=== PATIENT | female | born 1995 | race Native Hawaiian/Other Pacific Islander ===

== ENCOUNTER 2016-04-05 14:26 | Inpatient (IN) | payer MEDICAID, OTHER ==
[~2016-04-05] VITALS: Ht 167.6 cm; Wt 73.9 kg
[2016-04-05 15:03] LABS: BASOPHILS % (AUTO) 0.2 % (0.0-2.0); EOSINOPHILS % (AUTO) 1.6 % (1.0-6.0); HEMATOCRIT 40.5 % (36-46); HEMOGLOBIN 13.3 g/dL (12.0-16.0); LYMPHOCYTES # (AUTO) 2.6 K/uL (1.0-4.8); LYMPHOCYTES % (AUTO) 28.7 % (22.0-44.0); MEAN CORPUSCULAR HEMOGLOBIN 27.8 pg (26.0-34.0); MEAN CORPUSCULAR HGB CONC 32.7 G/dL (31.0-37.0); MEAN CORPUSCULAR VOLUME 85 fL (80-100); MONOCYTES # (AUTO) 0.6 K/uL (0.1-1.0); MONOCYTES % (AUTO) 6.4 % (2.0-9.0); NEUTROPHILS # (AUTO) 5.6 K/uL (1.8-7.7); NEUTROPHILS % (AUTO) 63.1 % (40.0-70.0); PLATELET COUNT (AUTO) 307 K/uL (150-450); RED BLOOD CELL COUNT(AUTO) 4.78 MIL/uL (4.00-5.20); RED CELL DISTRIBUTION WIDTH 13.7 % (11.5-14.5); WHITE BLOOD COUNT (AUTO) 8.9 K/uL (4.5-11.0)
[2016-04-05 15:16] LABS: ANION GAP 9 mmol/L (8-16); CALCIUM, TOTAL 9.3 mg/dL (8.8-10.5); CARBON DIOXIDE 30 mmol/L (22-29); CHLORIDE 100 mmol/L (98-107); CREATININE 0.82 mg/dL (0.60-1.30); GLOMERULAR FILTR. RATE CALC > 60 mL/min (>60); POTASSIUM 4.1 mmol/L (3.5-5.1); SODIUM SERUM 139 mmol/L (136-145); UREA NITROGEN, BLOOD 13 mg/dL (7-18)
[2016-04-05 15:22] LABS: ALANINE AMINOTRANSFERASE 24 U/L (12-78); ASPARTATE AMINOTRANSFERASE 21 U/L (15-37); BILIRUBIN,TOTAL 0.4 mg/dL (0.1-1.0); TOTAL PROTEIN, SERUM 8.7 g/dL (6.4-8.2)
[2016-04-05] MEDS ORDERED: ZOLPIDEM TARTRATE 10 MG TABLET PO PRN (15:45)
[2016-04-05 18:14] VITALS: BP 108/55
[2016-04-05] MEDS ORDERED: INFLUENZA VIRUS VACCINE QVS 2016-17 (3YR+)/PF 60 MCG/0.5 ML SYRINGE IM ONE (19:15)
[2016-04-05] MEDS: LORazepam 2 MG TABLET PO PRN (20:39)
[2016-04-05] MEDS: HALOPERIDOL 5 MG TABLET PO PRN (20:39)
[2016-04-06 06:15] VITALS: BP 105/61
[2016-04-06 08:30] VITALS: BP 115/68
[2016-04-06] MEDS ORDERED: ACETAMINOPHEN 325 MG TABLET PO PRN (09:15)
[2016-04-06] MEDS ORDERED: IBUPROFEN 400 MG TABLET PO PRN (09:15)
[2016-04-06 16:00] VITALS: BP_SYST 106; BP_SYST 108; BP_DIAS 64; BP_DIAS 68
[2016-04-06] MEDS: LORazepam 2 MG TABLET PO PRN (17:12)
[2016-04-07 08:33] LABS: HEMOGLOBIN A1C 5.3 % (4.5-6.2)
[2016-04-07 08:59] LABS: CHOL/HDL RATIO 2.2 (3.9-5.7); THYROID STIMULATING HORMONE 0.36 uIU/mL (0.36-3.74)
[2016-04-07] MEDS: LORazepam 2 MG TABLET PO PRN ×2 (09:00→17:05)
[2016-04-07 09:32] LABS: APPEARANCE,URINE CLOUDY (CLEAR); GLUCOSE, URINE (UA) NEGATIVE (NEGATIVE); KETONES,URINE NEGATIVE (NEGATIVE); LEUKOCYTE ESTERASE ,URINE MODERATE (NEGATIVE); OCCULT BLOOD,URINE NEGATIVE (NEGATIVE); PROTEIN,URINE NEGATIVE (NEGATIVE)
[2016-04-07 10:12] LABS: ADD UA MICROSCOPIC YES
[2016-04-07 10:36] LABS: SQUAMOUS EPITHELIAL CELL,UR Few /LPF (None Seen)
[2016-04-07 16:07] VITALS: BP 101/62
[2016-04-07] MEDS: CIPROFLOXACIN HCL 250 MG TABLET PO SCH (17:00)
[2016-04-07] MEDS: HALOPERIDOL 5 MG TABLET PO PRN (17:05)
[2016-04-08 08:34] VITALS: BP 118/66
[2016-04-08] MEDS: CIPROFLOXACIN HCL 250 MG TABLET PO SCH ×2 (08:49→16:22)
[2016-04-08] MEDS: LORazepam 2 MG TABLET PO PRN (14:23)
[2016-04-08 16:10] VITALS: BP 105/62
[2016-04-08] MEDS: RisperiDONE 0.5 MG TABLET PO SCH (20:20)
[2016-04-09 06:52] VITALS: BP 118/58
[2016-04-09 08:18] VITALS: BP 100/52
[2016-04-09] MEDS: CIPROFLOXACIN HCL 250 MG TABLET PO SCH (08:54)
[2016-04-09] MEDS: RisperiDONE 0.5 MG TABLET PO SCH (08:54)
[2016-04-09] MEDS: LORazepam 2 MG TABLET PO PRN (08:55)
[2016-04-09] MEDS: HALOPERIDOL 5 MG TABLET PO PRN (08:55)
== END 2016-04-09 13:30 | disposition home or self-care (01) | DRG 750 ==
LOC: EMS 14:31 → B3A 16:28
PROVIDERS: ADMIT Psychiatry & Neurology Child & Adolescent Psychiatry; ATTEND Psychiatry & Neurology Child & Adolescent Psychiatry
PROC: 3E0234Z Introduction of Serum, Toxoid and Vaccine into Muscle, Percutaneous Approach (ICD-10-PCS; principal; 2016-04-06)
DX: F25.1 Schizoaffective disorder, depressive type (principal); R45.851 Suicidal ideations; F15.10 Other stimulant abuse, uncomplicated; F10.10 Alcohol abuse, uncomplicated; Z71.41 Alcohol abuse counseling and surveillance of alcoholic; Z23 Encounter for immunization; Z71.51 Drug abuse counseling and surveillance of drug abuser
CPT/HCPCS: 83036; 84443; 87086; 90471; 99285; G0480

== ENCOUNTER 2016-04-27 19:03 | Emergency (ER) | payer MEDICAID | END 2016-04-27 20:02 | disposition left against medical advice (07) | LOC: EMS 19:09 | DX: R51 Headache (principal); Z53.21 Procedure and treatment not carried out due to patient leaving prior to being seen by health care provider ==

== ENCOUNTER 2016-11-14 21:07 | Emergency (ER) | payer MEDICAID, OTHER ==
[~2016-11-14] VITALS: Ht 172.7 cm; Wt 75.0 kg
[2016-11-14] MEDS ORDERED: MORPHINE SULFATE 4 MG/ML SYRINGE IM ONE (21:30)
[2016-11-14] MEDS: ONDANSETRON HCL 4 MG/2 ML VIAL IM ONE ×2 (21:44→21:51)
[2016-11-14 23:51] VITALS: BP 110/65
== END 2016-11-15 00:02 | disposition home or self-care (01) ==
LOC: EMS 21:39
DX: S82.831A Other fracture of upper and lower end of right fibula, initial encounter for closed fracture (principal); M25.561 Pain in right knee; F12.90 Cannabis use, unspecified, uncomplicated; W01.0XXA Fall on same level from slipping, tripping and stumbling without subsequent striking against object, initial encounter; Y93.89 Activity, other specified; Y92.89 Other specified places as the place of occurrence of the external cause; Y99.8 Other external cause status
CPT/HCPCS: 29515; 73562; 73590; 73610; 81025; 96372; 99284; J2270; J2405

== ENCOUNTER 2017-01-21 09:14 | Emergency (ER) | payer OTHER ==
[~2017-01-21] VITALS: Ht 170.2 cm; Wt 79.5 kg
[2017-01-21] MEDS ORDERED: RISP4 PO (09:23)
[2017-01-21] MEDS ORDERED: KETOROLAC TROMETHAMINE 30 MG/ML VIAL IVP ONE (10:00)
[2017-01-21] MEDS ORDERED: ONDANSETRON HCL 4 MG/2 ML VIAL IVP ONE (10:00)
[2017-01-21] MEDS ORDERED: SODIUM CHLORIDE 0.9% 1,000 ML IV ONE ×2 (10:00→11:00)
[2017-01-21] MEDS ORDERED: ACETAMINOPHEN 1000 MG/ISO-OSM 100 ML IV ONE (10:00)
[2017-01-21 10:43] LABS: HEMATOCRIT 40.6 % (36-46); HEMOGLOBIN 13.6 g/dL (12.0-16.0); MEAN CORPUSCULAR HGB CONC 33.3 G/dL (31.0-37.0); MEAN CORPUSCULAR VOLUME 84 fL (80-100); PLATELET COUNT (AUTO) 259 K/uL (150-450); RED BLOOD CELL COUNT(AUTO) 4.83 MIL/uL (4.00-5.20); RED CELL DISTRIBUTION WIDTH 13.3 % (11.5-14.5); WHITE BLOOD COUNT (AUTO) 29.4 K/uL (4.5-11.0)
[2017-01-21 10:50] LABS: ANION GAP 11 mmol/L (8-16); CALCIUM, TOTAL 8.6 mg/dL (8.8-10.5); CARBON DIOXIDE 24 mmol/L (22-29); CHLORIDE 95 mmol/L (98-107); CREATININE 2.24 mg/dL (0.60-1.30); GLOMERULAR FILTR. RATE CALC 28 mL/min (>60); POTASSIUM 4.5 mmol/L (3.5-5.1); SODIUM SERUM 130 mmol/L (136-145); UREA NITROGEN, BLOOD 20 mg/dL (7-18)
[2017-01-21] MEDS ORDERED: VANCOMYCIN HCL 1 GM/D5% WATER 200 ML IV ONE (11:00)
[2017-01-21 11:14] LABS: ALANINE AMINOTRANSFERASE 17 U/L (12-78); ALBUMIN 2.9 g/dL (3.4-5.0); ASPARTATE AMINOTRANSFERASE 18 U/L (15-37); BILIRUBIN,TOTAL 0.5 mg/dL (0.1-1.0); CREATINE KINASE, TOTAL 116 U/L (26-192); TOTAL PROTEIN, SERUM 7.8 g/dL (6.4-8.2)
[2017-01-21 11:15] LABS: CREATINE KINASE MB < 0.5 ng/mL (0-5)
[2017-01-21 11:24] LABS: BAND NEUTROPHILS % (MANUAL) 34 % (1-5); LYMPHOCYTES % (MANUAL) 3 % (22-44); TOTAL CELLS COUNTED 100
[2017-01-21 12:00] VITALS: BP 90/49
== END 2017-01-21 12:12 | disposition short-term general hospital (02) ==
LOC: EMS 09:16
DX: T79.A0XA Compartment syndrome, unspecified, initial encounter (principal); A41.9 Sepsis, unspecified organism; D72.829 Elevated white blood cell count, unspecified; N28.9 Disorder of kidney and ureter, unspecified; R11.2 Nausea with vomiting, unspecified
CPT/HCPCS: 36415; 71010; 73090; 80053; 82550; 82553; 83605; 84703; 85025; 87040; 93005; 93931; 96365; 96366; 96375; 99285; J0131; J1885; J2405; J3370; J7030; 96361

== ENCOUNTER 2017-06-14 15:59 | Emergency (ER) | payer OTHER ==
[~2017-06-14] VITALS: Ht 172.7 cm; Wt 61.4 kg
[~2017-06-14 15:59] MED LIST: ETOMIDATE 2 MG/ML 10 ML VIAL IVP ONE; RISP4 PO; SUCCINYLCHOLINE CHLORIDE 20 MG/ML 10 ML VIAL IVP ONE
[2017-06-14] MEDS ORDERED: PROPOFOL 1000 MG/ISO-OSM 100 ML IV ONE (16:06)
[2017-06-14] MEDS ORDERED: PERTUSS(ACELL),DIPH,TET VAC/PF 0.5 ML VIAL IM ONE (16:12)
[2017-06-14 16:15] VITALS: BP 164/109
[2017-06-14] MEDS ORDERED: PHENYLEPHRINE 200 MG/D5%-WATER 250 ML IV PRN (16:15)
== END 2017-06-14 16:42 | disposition short-term general hospital (02) ==
LOC: EMS 16:02
DX: S21.102A Unspecified open wound of left front wall of thorax without penetration into thoracic cavity, initial encounter (principal); J96.90 Respiratory failure, unspecified, unspecified whether with hypoxia or hypercapnia; W34.09XA Accidental discharge from other specified firearms, initial encounter; Y93.89 Activity, other specified; Y92.098 Other place in other non-institutional residence as the place of occurrence of the external cause; Y99.8 Other external cause status
CPT/HCPCS: 31500; 71045; 90715; 99291; J0330; J0690; J2704; J3490; J2370

== ENCOUNTER 2018-06-27 08:18 | Emergency (ER) | payer MEDICAID, OTHER ==
[~2018-06-27] VITALS: Ht 170.2 cm; Wt 79.5 kg
[~2018-06-27 08:18] MED LIST changes: -ETOMIDATE 2 MG/ML 10 ML VIAL IVP ONE; -SUCCINYLCHOLINE CHLORIDE 20 MG/ML 10 ML VIAL IVP ONE
[2018-06-27] MEDS ORDERED: CEPHALEXIN MONOHYDRATE 500 MG CAPSULE PO ONE (09:30)
[2018-06-27] MEDS ORDERED: SULFAMETHOX/TRIMETH DS 800-160 MG/TABLET PO ONE (09:30)
[2018-06-27] MEDS ORDERED: IBUPROFEN 600 MG TABLET PO ONE (09:30)
[2018-06-27 10:18] VITALS: BP 99/54
== END 2018-06-27 10:19 | disposition home or self-care (01) ==
LOC: EMS 08:18
DX: L03.114 Cellulitis of left upper limb (principal); F15.90 Other stimulant use, unspecified, uncomplicated; F17.210 Nicotine dependence, cigarettes, uncomplicated
CPT/HCPCS: 99406